=== PATIENT | female | born 1955 | race Caucasian/White ===

== ENCOUNTER 2022-07-05 06:24 | Observation (INO) ==
--- NOTE | 2022-06-07 09:13 | PAT Medication Instructions ---
Medication Instructions Date of Service June 07, 2022 Home Medications Catechola-Calm 1 tab PO QPM Qunol 1 tab PO QPM albuterol sulfate 90 mcg/actuation aerosol inhaler 1 inh inhalation QID PRN amlodipine 10 mg tablet 10 mg PO QAM calcium 500 mg tablet 500 mg PO QAM celecoxib 200 mg capsule 200 mg PO BID PRN cholecalciferol (vitamin D3) 10 mcg (400 unit) capsule (Vitamin D3) 10 mcg PO QAM famotidine 40 mg tablet 40 mg PO HS fexofenadine 60 mg tablet 60 mg PO BID PRN magnesium 200 mg tablet 200 mg PO QAM metoprolol tartrate 25 mg tablet 12.5 mg PO QPM montelukast 10 mg tablet 10 mg PO HS ASK your surgeon for instructions celecoxib 200 mg capsule 200 mg PO BID PRN STOP taking 2 weeks before surgery Catechola-Calm 1 tab PO QPM Qunol 1 tab PO QPM DO NOT take the morning of surgery calcium 500 mg tablet 500 mg PO QAM cholecalciferol (vitamin D3) 10 mcg (400 unit) capsule (Vitamin D3) 10 mcg PO QAM fexofenadine 60 mg tablet 60 mg PO BID PRN magnesium 200 mg tablet 200 mg PO QAM Take morning of surgery With a small sip of water, OTHERWISE NOTHING TO EAT OR DRINK AFTER MIDNIGHT: albuterol sulfate 90 mcg/actuation aerosol inhaler 1 inh inhalation QID PRN(use if needed; please bring with you to hospital day of surgery if possible) amlodipine 10 mg tablet 10 mg PO QAM Take evening before surgery albuterol sulfate 90 mcg/actuation aerosol inhaler 1 inh inhalation QID PRN(if needed) famotidine 40 mg tablet 40 mg PO HS fexofenadine 60 mg tablet 60 mg PO BID PRN(if needed) metoprolol tartrate 25 mg tablet 12.5 mg PO QPM montelukast 10 mg tablet 10 mg PO HS Other Notes If you have any questions please call us at [phone] or [phone] or [phone] or [phone]
--- NOTE | 2022-06-14 14:42 | Anesthesiology Consultation ---
Date of Service June 14, 2022 Assessment & Plan (1) Encounter for pre-operative examination: - COVID screening: Per assessment on 06/14: No known COVID-19 positive contacts or current COVID-19 related symptoms. Travel screen negative. At surgeon discretion if preop Covid testing being done. - Outpatient joint assessment: Pt currently scheduled for inpatient pathway. If surgeon requests review for outpatient joint pathway, patient is acceptable candidate for outpatient joint program from anesthesia standpoint pending surgeon's office assessment of pt motivation/strong home support/completion of same day joint program preop requirements. 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 Last office visit (05/09/22)- "Surgery for SGS was 05/12/17, 03/29/19, 08/23/19.. Breathing stable since last visit, approx ~5% worse SGS.. Min reflux laryngitis.. SGS size (~20-25%) - less red, min exudate; circumferential.. Pantoprazole.. Famotidine.. Hydrate/humidify.. Mucinex PRN.. Prednisone PRN dyspnea.. Treat allergies optimally.. For knee surgery - LMA or small tube (size 6-6.5) and careful placement.. If worsening dyspnea, can revisit MDL, balloon dilation" Chart Review Chart Review: Acceptable Risk for Surgery and Patient seen in Pre Admission Testing Teaching & Discussion Pre-Anesthesia Teaching/Discussion Notes: Instructed NPO after midnight before surgery,except medications with 15 cc of water. Medication instructions provided according to the PAT guidelines. History Surgery Operation Date: 07/05/22 12:10 Proposed Procedures p Right Total Knee Arthroplasty - Claudy Katz DO Height/Weight Height: 5 ft 2 in Weight: 91.6 kg Allergies Allergy/AdvReac Type Severity Reaction Status Date / Time No Known Allergies Allergy Verified 06/06/22 09:31 Medications Home Medications Medication Instructions Recorded Confirmed Last Taken Catechola-Calm 1 tab PO QPM 06/06/22 06/06/22 Unknown Qunol 1 tab PO QPM 06/06/22 06/06/22 Unknown albuterol sulfate 90 mcg/actuation 1 inh inhalation QID PRN Shortness 06/06/22 06/06/22 Unknown aerosol inhaler Of Breath Or Wheezing amlodipine 10 mg tablet 10 mg PO QAM 06/06/22 06/06/22 Unknown calcium 500 mg tablet 500 mg PO QAM 06/06/22 06/06/22 Unknown celecoxib 200 mg capsule 200 mg PO BID PRN Pain 06/06/22 06/06/22 Unknown cholecalciferol (vitamin D3) 10 10 mcg PO QAM 06/06/22 06/06/22 Unknown mcg (400 unit) capsule (Vitamin D3) famotidine 40 mg tablet 40 mg PO HS 06/06/22 06/06/22 Unknown fexofenadine 60 mg tablet 60 mg PO BID PRN Allergy Symptoms 06/06/22 06/06/22 Unknown magnesium 200 mg tablet 200 mg PO QAM 06/06/22 06/06/22 Unknown metoprolol tartrate 25 mg tablet 12.5 mg PO QPM 06/06/22 06/06/22 Unknown montelukast 10 mg tablet 10 mg PO HS 06/06/22 06/06/22 Unknown Past Medical History Medical History (Updated 06/14/22 @ 14:57 by Babs Jarvis) History of COVID-2019 Symptoms at time: SOB, Covid PNA (6 day hospitalization [facility]) > resolved Hyperlipidemia Hypertension Sarcoidosis Diagnosed 20 yrs ago Seasonal allergies 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 Solis Roth (ENT, [place] office) Exercise / Class Metabolic Activity II 4-5 Yardwork/Stairs/Walk up hill (one FS (no CP, no SOB)) Past Family History Family History Other No family history of adverse response to anesthesia Past Surgical History Surgical History History of bronchoscopy History of bunionectomy left History of lung biopsy 20 yrs ago Past Anesthesia History No Hx of Anesthesia Complications and No Family Hx of Anesthesia Complications History of PONV No Hx of PONV and No Hx of Motion Sickness Social History Smoking Status: Never smoker Do You Dip or Chew Tobacco: No Hx Alcohol Use: No Hx Substance Use: No substance use type: does not use Review of Systems Patient denies chest pain, shortness of breath, dyspnea on exertion, fever, chills, cough, wheezing, palpitations. Physical Exam Vital Signs VITALS BP 168/77 P 81 TEMP 98.4 SP02 96%RA RESP 16 PHYSICAL Full cervical extension range of motion. Full TMJ range of motion. TMD 3 finger breaths Mallampati Score 3 Dentition: intact Lungs: clear throughout to auscultation Cardiac: regular rate and rhythm, no murmurs noted Spine: normal Carotid arteries: negative bruit Extremities: no edema Lab Results Anesthesia Preop Results Results Anesthesia Widget: WBC 7.67 K/ul (4.8-10.8) 06/14/22 Hgb 14.4 g/dl (12.0-16.0) 06/14/22 Hct 43.3 % (34.1-44.9) 06/14/22 Plt 278 K/uL (130-400) 06/14/22 Na 140 mmol/L (136-145) 06/14/22 K 4.0 mmol/L (3.5-5.1) 06/14/22 Cl 102 mmol/L (98-107) 06/14/22 CO2 29 mmol/L (21-32) 06/14/22 BUN 17 mg/dl (6-23) 06/14/22 Creat 0.87 mg/dl (0.6-1.2) 06/14/22 Glucose Level 104 mg/dl (70-99(Fasting)) H 06/14/22 PT 10.2 Seconds (9.0-12.0) 06/14/22 PTT 29.9 Seconds (21.0-31.0) 06/14/22 INR 1.0 (0.9-1.1) 06/14/22 Blood Type O Positive 06/14/22 Antibody Screen NEGATIVE 06/14/22 Testing Electrocardiogram Date: 06/14/22 Findings: + NSR @ (76) Chest X-Ray Date: 06/14/22 Findings: + NAD COVID-19 Risk Screen Screening Information COVID-19 Screen Date: 06/14/22 Exposure 21 Days Family/Household +COVID Last 21 Days: No Exposure 10 Days Any COVID Exposure Last 10 Days: No Symptoms Last 10 Days Experienced COVID Sx Last 10 Days: No + COVID 0-90 Days COVID + in Last 0-90 Days: No
[~2022-07-05 06:24] MED LIST: ACETAMINOPHEN 500 MG TAB PO SCH; BUPIVACAINE 0.25% 30 ML VIAL ONE; BUPIVACAINE 0.5 % 5 MG/1 ML PF 10ML VIAL ONE; DEXAMETHASONE SOD INJ 4 MG/ML VIAL ONE; EPINEPHrine INJ 1 MG/ML AMP ONE; FAMOTIDINE 20 MG TAB PO SCH; GABAPENTIN 300 MG CAP PO SCH; LR 500ML BOLUS, THEN 15ML/HR IV SCH; LR 60ML/HR IV SCH; ORTHO JOINT MIX INFIL SCH; TRANEXAMIC ACID 1,000 MG **IV Intra-op IV SCH; TRANEXAMIC ACID 1,000 MG **IV Pre-op IV SCH; ceFAZolin 2000MG 2,000 MG/15 ML SYR IV SCH; dexAMETHasone 4 MG TAB PO SCH
--- NOTE | 2022-07-05 06:43 | History & Physical Bridge Note ---
Date of Service July 05, 2022 History & Physical Bridge Note I have examined the patient, reviewed the History & Physical and in the interval since the performance of the History & Physical I have noted the following changes of clinical significance: no changes noted
[2022-07-05] MEDS ORDERED: fentaNYL citrate 100 MCG/2 ML VIAL ONE (07:39)
[2022-07-05] MEDS ORDERED: LIDOCAINE 2% MPF LOCAL 5 ML VIAL INFIL ONE (07:39)
[2022-07-05] MEDS ORDERED: ONDANSETRON INJ 2 MG/ML 2 ML VIAL ONE (07:39)
[2022-07-05] MEDS ORDERED: MIDAZOLAM HCL 1 MG/ML 2ML VIAL ONE (07:39)
[2022-07-05] MEDS ORDERED: PROPOFOL IV EMULSION 10 MG/ML 20 ML VIAL IV ONE ×2 (07:39→09:58)
[2022-07-05] MEDS ORDERED: ORTHO JOINT ANESTHETIC ONE (08:35)
[2022-07-05] MEDS ORDERED: DEXAMETHASONE SOD INJ 4 MG/ML VIAL ONE (09:16)
--- NOTE | 2022-07-05 10:05 | Operative Report ---
PG Post Operative Report Pre & Post Diagnosis Operation Date: 07/05/22 08:50 Pre-Op Diagnosis: Right Knee Degenerative Joint Disease Post-Op Diagnosis: Right Knee Degenerative Joint Disease I identified the patient and participated in the time-out.: Yes Procedure Operation Date: 07/05/22 08:50 Actual Procedures p Right Total Knee Arthroplasty, Cemented(Right) - Claudy Katz DO Surgeon Claudy Katz DO Photoengraving Proofer Claudy Holman PA-C Estimated Blood Loss 20 Findings Consistent with Post-Op Diagnosis Specimens Right femoral and tibial bone Description of Procedure Implants used: I used a Hank Persona total knee arthroplasty system with a size 8 PS narrow femur, D tibia, 31 oval patella, and a size 12 CPS polyethylene bearing. All components were cemented in place with Biomet cement. Nelly arrived [facility] for the above procedure. She was seen in the preoperative holding area and the operative extremity was identified and signed. She was given a preoperative antibiotic, TXA, a spinal anesthetic and an adductor nerve block. She was taken back to the operating room and laid on the table in supine position. She was given basic sedation. The operative knee was then prepped and draped in sterile fashion. A timeout was done, and the patient and the operative extremity was properly identified. A midline incision was made directly over the patella. Dissection was taken down to the extensor mechanism. A subvastus arthrotomy was used. The medial retinaculum was released and the fat pad was mostly excised. The knee was flexed and the ACL, PCL, and meniscus were removed. A drill was sent down the center of the femoral canal followed by an intramedullary brissa. Off that brissa a distal femoral cutting block was placed. 9 mm was resected off the distal femur at 5 of valgus. A posterior referencing AP sizing guide was then placed on the distal femur. The femur measured to be a size 8. 2 drill holes were placed in 3 of external rotation. A 4-in-1 cutting block was then impacted into place. Anterior, posterior, and chamfer cuts were then made. The proximal tibia was then exposed. An external tibial alignment guide was placed. A tibial cut guide was then anchored in place and the proximal tibia was then resected. The posterior aspect of the knee was then opened up and any additional meniscus fragments and osteophytes were removed. The tibia measured to be a size D. The tibial plate was then placed in the appropriate rotation and the tibia was drilled and punched. Trial components were then placed. I used a size 12 CPS polyethylene insert. The knee was brought through a full range of motion and felt to be stable. The peg holes for the femoral component were then drilled. The patella was then everted and 9 mm was resected off the posterior aspect of the patella. The patella measured to be a size 31 oval. 3 peg holes were then drilled. A trial patella was placed. The knee was once again brought through a full range of motion and felt to be stable. Trial components were then removed. The surrounding soft tissues were injected with 100 cc of an orthopedic pain control cocktail. All components were then cemented into place with Biomet cement. The final polyethylene insert was then snapped into place. Once cement was dry the tourniquet was deflated. Hemostasis was obtained. A dilute betadyne lavage was then done for 3 minutes. The joint was then irrigated with normal saline solution. The subvastus arthrotomy was then closed with #1 Vicryl suture. The skin was closed with 2-0 Vicryl, 3-0V lock suture, and belkis. A soft compressive dressing was placed. She was then transferred to a hospital bed and taken to the postanesthesia care unit in stable condition. She tolerated the procedure well. Claudy Holman PA-C, was present for the entire procedure. He was critical for patient positioning, prepping, draping, retraction exposure, wound closure and application of sterile dressing. I attest to the content of the Intraoperative Record and any orders documented therein. Any exceptions are noted below.
[2022-07-05] MEDS ORDERED: ONDANSETRON INJ 2 MG/ML 2 ML VIAL IV PRN ×2 (10:46→12:03)
[2022-07-05] MEDS ORDERED: ATROPINE SULFATE 0.1 MG/ML 10ML SYR IV PRN (10:46)
[2022-07-05] MEDS ORDERED: PROMETHAZINE HCL 6.25 MG in SODIUM CHLORIDE 0.9% 50 ML IV PRN (10:46)
[2022-07-05] MEDS ORDERED: fentaNYL citrate 100 MCG/2 ML VIAL IV PRN (10:46)
[2022-07-05] MEDS ORDERED: ePHEDrine sulfate 50 MG/ML AMP IV PRN (10:46)
--- NOTE | 2022-07-05 11:04 | XRay Report ---
XR knee RT 1 or 2V routine CLINICAL HISTORY: Postoperative evaluation. COMPARISON: Knee radiographs September 15, 2021. FINDINGS: Alignment of the total right knee arthroplasty is anatomic. There is no periprosthetic fra cture. No unexpected radiopaque foreign bodies are present. There are skin belkis. IMPRESSION: Expected findings following total right knee arthroplasty. ACT 112: Negative or not required by law. Electronically signed by: Bruce Wilder M.D. 07/05/2022 11:03 AM
[2022-07-05] MEDS ORDERED: bisacodyL 10 MG SUPP PR PRN (12:03)
[2022-07-05] MEDS ORDERED: ALBUTEROL HFA 8 GM INHALER INH PRN (12:03)
[2022-07-05] MEDS ORDERED: METOCLOPRAMIDE HCL INJ 5 MG/ML 2 ML VIAL IV PRN (12:03)
[2022-07-05] MEDS ORDERED: HYDROmorphone INJ 0.5 MG/0.5 ML SYR IV PRN (12:03)
[2022-07-05] MEDS ORDERED: NALOXONE HCL 0.4 MG/1 ML VIAL/CARP IV PRN (12:03)
[2022-07-05] MEDS ORDERED: oxyCODONE HCL IR 5 MG TAB (IMMEDIATE RELEASE) PO PRN (12:03)
[2022-07-05] MEDS ORDERED: FEXOFENADINE 60 MG TAB PO PRN (12:03)
[2022-07-05] MEDS ORDERED: MAGNESIUM HYDROXIDE SUSP 30 ML UDC PO PRN (12:03)
[2022-07-05] MEDS: SODIUM CHLORIDE 0.9% 1000ML 1,000 ML IV SCH ×2 (12:40→22:36)
[2022-07-05] MEDS: KETOROLAC 30 MG/ML VIAL IV SCH ×2 (14:52→21:22)
--- NOTE | 2022-07-05 16:03 | Anesthesiology Progress Note ---
Date of Service July 05, 2022 Anesthesia Post Procedure Vital Signs Vital Signs: Temp Pulse Pulse Resp BP Pulse Ox O2 Del Method 07/05/22 14:33 36.5 C 75 16 126/73 95 Nasal Cannula 07/05/22 13:35 36.5 C 79 16 122/69 95 Nasal Cannula 07/05/22 12:35 36.5 C 102 H 16 143/80 H 93 Nasal Cannula 07/05/22 12:00 75 12 134/64 96 Nasal Cannula 07/05/22 11:45 73 12 132/65 94 Nasal Cannula 07/05/22 11:30 68 12 128/70 95 Nasal Cannula 07/05/22 11:15 69 17 127/72 93 Nasal Cannula 07/05/22 11:05 36.1 C L 70 12 136/67 95 Nasal Cannula 07/05/22 10:55 76 15 130/70 93 Oxymask 07/05/22 10:45 74 13 136/69 93 Oxymask 07/05/22 10:35 77 18 127/65 95 Oxymask 07/05/22 10:27 36.2 C L 79 16 118/62 95 Oxymask 07/05/22 06:46 36.5 C 95 H 20 184/96 H 97 Room Air O2 Flow Rate 07/05/22 14:33 2 07/05/22 13:35 2 07/05/22 12:35 2 07/05/22 12:00 3 07/05/22 11:45 3 07/05/22 11:30 3 07/05/22 11:15 3 07/05/22 11:05 3 07/05/22 10:55 4 07/05/22 10:45 6 07/05/22 10:35 8 07/05/22 10:27 10 07/05/22 06:46 Pain Intensity Right Knee: Pain Intensity: 3 Transfer of Care Handoff Completed per policy Notes Mental Status: alert / awake / arousable Patient Amnestic to Procedure: Yes Nausea / Vomiting: adequately controlled Pain: adequately controlled Airway Patency, RR, SpO2: stable & adequate BP & HR: stable & adequate Hydration State: stable & adequate Neuraxial Anesthesia: was administered and sensory block is resolving Anesthetic Complications: no major complications apparent and Pt Satisfied with anesthetic care
[2022-07-05] MEDS: ceFAZolin 2000MG 2,000 MG/15 ML SYR IV SCH (16:39)
[2022-07-05] MEDS ORDERED: SENNA 8.6 MG TAB PO SCH (21:00)
[2022-07-05] MEDS ORDERED: METOPROLOL TARTRATE 25 MG TAB PO SCH (21:00)
[2022-07-05] MEDS ORDERED: MONTELUKAST SODIUM 10 MG TABLET PO SCH (21:00)
[2022-07-05] MEDS ORDERED: FAMOTIDINE 40 MG TABLET PO SCH (21:00)
[2022-07-05] MEDS: ASPIRIN 81 MG ECTAB PO SCH (21:37)
[2022-07-05] MEDS: DOCUSATE SODIUM 100 MG CAP PO SCH (21:38)
[2022-07-05] MEDS: ACETAMINOPHEN 500 MG TAB PO SCH (21:40)
[2022-07-06] MEDS: ceFAZolin 2000MG 2,000 MG/15 ML SYR IV SCH (00:36)
[2022-07-06] MEDS: KETOROLAC 30 MG/ML VIAL IV SCH ×2 (02:31→07:34)
[2022-07-06] MEDS: ACETAMINOPHEN 500 MG TAB PO SCH (06:28)
--- NOTE | 2022-07-06 06:54 | Orthopedic Progress Note ---
Date of Service July 06, 2022 Assessment & Plan (1) Status post right knee replacement: Overall she is doing very well. She is not having much pain in the right knee. She will be seen by physical therapy today for ambulation and range of motion exercises. She is on aspirin for DVT prophylaxis. She can be discharged home later today. She will follow-up with orthopedics in 2 weeks. Irene Villegas was seen and examined at bedside this morning. Overall she is doing very well. She is not any much pain in the right knee. She has been up and ambulating to the bathroom. She has no complaints.. Review of Systems All systems reviewed & are unremarkable except as noted in HPI & below. Physical Exam On physical examination of the right knee, the dressing is clean and dry. Her leg is out in full extension. She has active dorsiflexion plantarflexion of her right ankle.. Results & Data Results & Data Laboratory Results . Diagnostic Findings Postoperative x-rays of the right knee show the prosthesis to be in anatomic alignment without any evidence of fracture, desiccation, or loosening. PG Care Time/CCT Total # of Minutes Spent Total Time Spent with Patient: Total time spent is greater than 50% in coordination of care (as documented) at patient's floor/unit and/or counseling patient: Coding Level of Care Code 72048 Post Operative Follow-Up Diagnoses Status post right knee replacement Z96.651
--- NOTE | 2022-07-06 06:55 | Discharge Summary ---
Date of Service July 06, 2022 Principal Diagnosis Same as "Discharge Diagnosis" noted below under Discharge Instructions. Discharge Exam On physical examination of the right knee, the dressing is clean and dry. Her leg is out in full extension. She has active dorsiflexion plantarflexion of her right ankle.. Discharge Data Procedures Performed Operation Date: 07/05/22 08:50 Actual Procedures p Right Total Knee Arthroplasty, Cemented(Right) - Claudy Katz DO Ordered Studies 07/05/22 05:00 US - OR guided needle placemen Routine Hospital Course (1) Status post right knee replacement: On July 05, 2022 Diane arrived at [facility] and underwent a right knee replacement without complication. She had a spinal anesthetic. Postoperatively she was started on aspirin for DVT prophylaxis and transferred to the general orthopedic floors. Her hospital course was uneventful. On postop day #1, her vital signs were stable and her pain was well controlled. She was able to participate well with physical therapy doing ambulation and range of motion exercises. She was then discharged home. She will follow-up with orthopedics in 2 weeks. PG Care Time/CCT Total # of Minutes Spent Total Time Spent with Patient: Total time spent is greater than 50% in coordination of care (as documented) at patient's floor/unit and/or counseling patient: Discharge Plan Discharge Items Patient Disposition: Home - Home Health Services Reason For Visit: Right Knee Degenerative Joint Disease Discharge Diagnosis: Right knee replacement Activity: Per Instructions section Non-emergency contact: Surgeon Call non-emergency contact if: your wound has increased redness and your wound has increased drainage Follow-up/Referrals: PCP,NO [Primary Care Provider] - Diet: Regular Addtl Attending Provider Instructions: Activity and Therapy Recommendations: * If you are using [facility] then therapy will be provided at your home until they feel you have accomplished all of your goals. * If you are using [facility] then Physical Therapy will be provided until they feel you are ready to start Outpatient Physical Therapy. * If you are not using home therapy then Outpatient Physical Therapy should start about 3-5 days from your day of surgery. Therapy will last about 6-10 weeks * It is important not to put a pillow under your knee when you are relaxing or sleeping. It is just as important to make sure you are getting your knee perfectly straight as it is to regain your knee bend. * You were shown a series of exercises in the hospital. Do these exercises three times each day including the exercises you were shown in physical therapy. * Get up and walk several times each day. For the first four weeks, try not to stand or walk for more than one hour at a time. If you do stand or walk for more than one hour, you will not hurt anything, but your leg will likely swell. * As you feel comfortable, you may change from the walker or crutches to a cane and then to independent walking. Medications: * Narcotic You will likely be sent home from the hospital with a prescription for the narcotic pain medication that worked best throughout your stay. * Aspirin Most patients will be required to take Aspirin 81mg twice a day for 6 weeks after surgery. This is obtained [id number] and a prescription is not necessary. * Other medications may be prescribed for specific circumstances. If you have any questions, please call the office at . * Resume previous home medications unless otherwise instructed TEDs/Elastic Stockings: The white elastic stockings help limit swelling and prevent blood clots from forming in your legs.~ The more you wear them, the more they work. Wear them for six weeks. Dressing Care: The dressing can be changed after physical therapy on postop day #1. Daily dry dressing changes for a few days, especially if the incision is still draining some. If the incision is not draining then you may leave the belkis open to air. If there is a little bit of drainage or if the belkis are getting stuck on your clothing then cover the incision with a dry dressing. The belkis will be removed at your 2 week follow-up appointment. Showering: You may shower 5 days from the day of surgery as long as the incision is no longer draining. You may shower with the belkis exposed. Let soapy water run over the belkis and pat them dry. Do not scrub or soak the incision. Things To Watch For: * Drainage from the incision site that occurs more than one week after your surgery. * Increased redness at the incision site. * Fever above 102 degrees Fahrenheit. * Unusual chest pain or shortness of breath. * Call [facility] at with any of the above problems Follow-Up Visit: Follow-up with Dr. Katz's PA (Claudy Holman) 2-3 weeks after your day of surgery. He will remove your belkis and answer any questions. If you have any additional questions or concerns, Dr Katz is usually in the office at the same time and will be available An appointment was probably scheduled when you signed-up for surgery in the office. If you have any questions call Office Instructions: More detailed instructions as well as Frequently Asked Questions were provided in a folder by our office when you signed-up for surgery. Please review these instructions when you get home. If you have any further questions or concerns, please feel free to call the off ice at [phone] Pending Studies at Discharge: No Stand-Alone Forms: My [facility] Medications and DC Order Prescriptions: New oxycodone-acetaminophen 5-325 mg tablet 1 tab PO Q6H PRN (Reason: pain) Qty: 30 0RF aspirin 81 mg Tablet,Delayed Release (Dr/Ec) 81 mg PO BID 42 Days Qty: 84 0RF Continued celecoxib 200 mg Capsule 200 mg PO BID PRN (Reason: Pain) famotidine 40 mg Tablet 40 mg PO HS calcium 500 mg Tablet 500 mg PO QAM amlodipine 10 mg Tablet 10 mg PO QAM montelukast 10 mg Tablet 10 mg PO HS magnesium 200 mg Tablet 200 mg PO QAM cholecalciferol (vitamin D3) [Vitamin D3] 10 mcg (400 unit) Capsule 10 mcg PO QAM metoprolol tartrate 25 mg Tablet 12.5 mg PO QPM Catechola-Calm 1 tab PO QPM fexofenadine [Marylou] 60 mg Tablet 60 mg PO BID PRN (Reason: Allergy Symptoms) albuterol sulfate 90 mcg/actuation Hfa Aerosol Inhaler 1 inh INHALATION QID PRN (Reason: Shortness Of Breath Or Wheezing) Qunol 1 tab PO QPM Discharge Orders: Discharge Order (Routine); Ordered 07/06/22 Ordered By: Claudy Katz Admission Data Admit Date/Time: 07/05/22 10:27 Attending Provider: Claudy Katz Admit Provider: Claudy Katz Primary Care Provider: [id number]
[2022-07-06] MEDS: DOCUSATE SODIUM 100 MG CAP PO SCH (07:34)
[2022-07-06] MEDS: ASPIRIN 81 MG ECTAB PO SCH (07:34)
[2022-07-06] MEDS ORDERED: dexAMETHasone 4 MG TAB PO SCH (08:00)
[2022-07-06] MEDS ORDERED: MAGNESIUM OXIDE 400 MG TAB PO SCH (09:00)
[2022-07-06] MEDS ORDERED: amLODIPine BESYLATE 5 MG TAB PO SCH (09:00)
[2022-07-06] MEDS ORDERED: MULTIVITAMIN TAB PO SCH (09:00)
== END 2022-07-06 12:25 | disposition home health service (06) ==
LOC: PACUINP 06:24 → ASU 06:24 → 3W 12:51

== ENCOUNTER 2023-03-17 06:39 | Observation (INO) ==
--- NOTE | 2023-02-08 10:00 | PAT Medication Instructions ---
Medication Instructions Date of Service February 08, 2023 Home Medications Medication Instructions Recorded celecoxib 200 mg capsule 200 mg PO BID PRN Pain #60 caps 07/06/22 amoxicillin 500 mg tablet 2,000 mg PO ONCE #4 tabs 02/03/23 amoxicillin 500 mg tablet 2,000 mg PO ONCE #4 tabs 02/03/23 Catechola-Calm 1 tab PO QPM Qunol 1 tab PO QPM albuterol sulfate 90 mcg/actuation aerosol inhaler 1 inh inhalation QID PRN Shor tness Of Breath Or Wheezing amlodipine 10 mg tablet 10 mg PO QAM calcium 500 mg tablet 500 mg PO QAM cholecalciferol (vitamin D3) 10 mcg (400 unit) capsule (Vitamin D3) 10 mcg PO QAM famotidine 40 mg tablet 40 mg PO HS fexofenadine 60 mg tablet 60 mg PO BID PRN Allergy Symptoms magnesium 200 mg tablet 200 mg PO QAM metoprolol tartrate 25 mg tablet 12.5 mg PO QPM montelukast 10 mg tablet 10 mg PO HS celecoxib 200 mg capsule 200 mg PO BID PRN Pain amoxicillin 500 mg tablet 2,000 mg PO ONCE amoxicillin 500 mg tablet 2,000 mg PO ONCE glucosamine-chondroitin 250 mg-200 mg tablet (Osteo Bi-Flex) 1 tab PO QAM Continue as directed amoxicillin 500 mg tablet 2,000 mg PO ONCE (if needed) ASK your surgeon for instructions celecoxib 200 mg capsule 200 mg PO BID PRN Pain STOP taking 2 weeks before surgery Catechola-Calm 1 tab PO QPM Qunol 1 tab PO QPM glucosamine-chondroitin 250 mg-200 mg tablet (Osteo Bi-Flex) 1 tab PO QAM DO NOT take the morning of surgery calcium 500 mg tablet 500 mg PO QAM cholecalciferol (vitamin D3) 10 mcg (400 unit) capsule (Vitamin D3) 10 mcg PO QAM fexofenadine 60 mg tablet 60 mg PO BID PRN Allergy Symptoms magnesium 200 mg tablet 200 mg PO QAM Take morning of surgery With a small sip of water, OTHERWISE NOTHING TO EAT OR DRINK AFTER MIDNIGHT: albuterol sulfate 90 mcg/actuation aerosol inhaler 1 inh inhalation QID PRN Shortness Of Breath Or Wheezing (use if needed; please bring with you to hospital day of surgery if possible) amlodipine 10 mg tablet 10 mg PO QAM Take evening before surgery albuterol sulfate 90 mcg/actuation aerosol inhaler 1 inh inhalation QID PRN Shortness Of Breath Or Wheezing (if needed) famotidine 40 mg tablet 40 mg PO HS fexofenadine 60 mg tablet 60 mg PO BID PRN Allergy Symptoms (if needed) metoprolol tartrate 25 mg tablet 12.5 mg PO QPM montelukast 10 mg tablet 10 mg PO HS Other Notes If you have any questions please call us at [phone] or [phone] or [phone] or [phone]
--- NOTE | 2023-02-14 11:52 | Anesthesiology Consultation ---
Date of Service February 14, 2023 Assessment & Plan (1) Encounter for pre-operative examination: - COVID screening: Per assessment on 02/14: No known COVID-19 positive contacts or current COVID-19 related symptoms. Travel screen negative. At surgeon discretion if preop Covid testing being done. - Outpatient joint assessment: Pt currently scheduled for inpatient pathway. If surgeon requests review for outpatient joint pathway, patient is an acceptable candidate for outpatient joint program from anesthesia standpoint. 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 Patient scheduled to see ENT prior to surgery- Awaiting office visit note (Dr. Solis Roth/[place] office, appt 03/06). Chart Review Chart Review: Patient seen in Pre Admission Testing Teaching & Discussion Pre-Anesthesia Teaching/Discussion Notes: Instructed NPO after midnight before surgery,except medications with 15 cc of water. Medication instructions pro vided according to the PAT guidelines. History Surgery Operation Date: 03/17/23 13:10 Proposed Procedures p Left Total Knee Arthroplasty - Claudy Katz, Height/Weight Height: 5 ft 2 in Weight: 89.4 kg Allergies Allergy/AdvReac Type Severity Reaction Status Date / Time No Known Allergies Allergy Verified 02/07/23 14:42 Medications Home Medications Medication Instructions Recorded Confirmed Last Taken Catechola-Calm 1 tab PO QPM 06/06/22 02/07/23 06/21/22 Qunol 1 tab PO QPM 06/06/22 02/07/23 06/21/22 albuterol sulfate 90 mcg/actuation 1 inh inhalation QID PRN Shortness 06/06/22 02/07/23 Unknown aerosol inhaler Of Breath Or Wheezing amlodipine 10 mg tablet 10 mg PO QAM 06/06/22 02/07/23 07/05/22 04:45 calcium 500 mg tablet 500 mg PO QAM 06/06/22 02/07/23 06/21/22 cholecalciferol (vitamin D3) 10 10 mcg PO QAM 06/06/22 02/07/23 06/21/22 mcg (400 unit) capsule (Vitamin D3) famotidine 40 mg tablet 40 mg PO HS 09/02/07/23 07/04/22 21:00 fexofenadine 60 mg tablet 60 mg PO BID PRN Allergy Symptoms 06/06/22 02/07/23 Unknown magnesium 200 mg tablet 200 mg PO QAM 06/06/22 02/07/23 06/21/22 metoprolol tartrate 25 mg tablet 12.5 mg PO QPM 06/06/22 02/07/23 07/04/22 21:00 montelukast 10 mg tablet 10 mg PO HS 06/06/22 02/07/23 07/04/22 21:00 celecoxib 200 mg capsule 200 mg PO BID PRN Pain #60 caps 07/06/22 02/07/23 Unknown amoxicillin 500 mg tablet 2,000 mg PO ONCE #4 tabs 02/03/23 02/07/23 Unknown amoxicillin 500 mg tablet 2,000 mg PO ONCE #4 tabs 02/03/23 02/07/23 Unknown glucosamine-chondroitin 250 mg-200 1 tab PO QAM 02/07/23 02/07/23 Unknown mg tablet (Osteo Bi-Flex) Past Medical History Medical History History of COVID-19 2020- Covid PNA (6 day hospitalization [facility]) > resolved Hyperlipidemia Hypertension Osteoarthritis Sarcoidosis Diagnosed 20 years ago Seasonal allergies 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 Solis Roth/[place] office) Exercise / Class Metabolic Activity II 4-5 Yardwork/Stairs/Walk up hill Past Family History Family History Other No family history of adverse response to anesthesia Past Surgical History Surgical History History of bronchoscopy History of bunionectomy left History of lung biopsy 20 years ago History of right knee joint replacement Right TKA (07/05/22): SAB at L3/4 (x1 attempt) + PNB at [facility] Social History Smoking Status: Never smoker Do You Dip or Chew Tobacco: No Hx Alcohol Use: No Hx Substance Use: No substance use type: does not use Review of Systems Patient denies chest pain, shortness of breath, dyspnea on exertion, fever, chills, cough, wheezing, palpitations. Physical Exam Vital Signs VITALS BP 149/83 P 72 TEMP 97.9 SP02 96%RA RESP 16 PHYSICAL Mildly decreased cervical extension range of motion. Full TMJ range of motion. TMD 3 finger breaths Mallampati Score 2 Dentition: intact Lungs: clear throughout to auscultation Cardiac: regular rate and rhythm, no murmurs noted Spine: normal Carotid arteries: negative bruit Extremities: non-pitting LE edema Lab Results Anesthesia Preop Results Results Anesthesia Widget: WBC 6.53 K/ul (4.8-10.8) 02/14/23 Hgb 13.7 g/dl (12.0-16.0) 02/14/23 Hct 41.1 % (37.0-47.0) 02/14/23 Plt 282 K/uL (130-400) 02/14/23 PT 10.4 Seconds (9.0-12.0) 02/14/23 PTT 30.6 Seconds (21.0-31.0) 02/14/23 INR 0.9 (0.9-1.1) 02/14/23 Blood Type O Positive 02/14/23 Antibody Screen NEGATIVE 02/14/23 Testing Laboratory Results 01/30/23 SODIUM 139 POTASSIUM 4.5 CHLORIDE 100 CO2 28 BUN 20 CREATININE 0.7 GLUCOSE 107 Electrocardiogram Date: 06/14/22 Findings: + NSR @ (76) Chest X-Ray Date: 06/14/22 Findings: + NAD COVID-19 Risk Screen Screening Information COVID-19 Screen Date: 02/14/23 Exposure 21 Days Family/Household +COVID Last 21 Days: No Exposure 10 Days Any COVID Exposure Last 10 Days: No Symptoms Last 10 Days Experienced COVID Sx Last 10 Days: No + COVID 0-90 Days COVID + in Last 0-90 Days: No
--- NOTE | 2023-03-16 12:08 | History & Physical Report ---
Date of Service March 16, 2023 Assessment & Plan (1) Osteoarthritis of left knee: We will proceed with a left total knee arthroplasty. Postoperatively she will be started on aspirin for DVT prophylaxis and kept overnight in the hospital for postop medical management. She plans to use energy physical therapy the following day. History of Present Illness Chief Complaint: Osteoarthritis of the left knee. Primary Care Provider: Maricarmen Peter MD Nelly is a pleasant 68-year-old female who has been doing with chronic increasing left knee pain. X-rays and clinical examination been diagnostic for advanced osteoarthritis of the left knee. After failed conservative treatment, she has elected proceed with a left total knee arthroplasty. I did do a right knee replacement on her in June 2022 when she is done well with that.. Allergies Allergy/AdvReac Type Severity Reaction Status Date / Time No Known Allergies Allergy Verified 02/07/23 14:42 Home Medications Medication Instructions Recorded Confirmed Type Catechola-Calm 1 tab PO QPM 06/06/22 02/07/23 History Qunol 1 tab PO QPM 06/06/22 02/07/23 History albuterol sulfate 90 mcg/actuation 1 inh inhalation QID PRN Shortness 06/06/22 02/07/23 History aerosol inhaler Of Breath Or Wheezing amlodipine 10 mg tablet 10 mg PO QAM 06/06/22 02/07/23 History calcium 500 mg tablet 500 mg PO QAM 06/06/22 02/07/23 History cholecalciferol (vitamin D3) 10 10 mcg PO QAM 06/06/22 02/07/23 History mcg (400 unit) capsule (Vitamin D3) famotidine 40 mg tablet 40 mg PO HS 06/06/22 02/07/23 History fexofenadine 60 mg tablet 60 mg PO BID PRN Allergy Symptoms 06/06/22 02/07/23 History magnesium 200 mg tablet 200 mg PO QAM 06/06/22 02/07/23 History metoprolol tartrate 25 mg tablet 12.5 mg PO QPM 06/06/22 02/07/23 History montelukast 10 mg tablet 10 mg PO HS 06/06/22 02/07/23 History celecoxib 200 mg capsule 200 mg PO BID PRN Pain #60 caps 07/06/22 02/07/23 Rx amoxicillin 500 mg tablet 2,000 mg PO ONCE #4 tabs 02/03/23 02/07/23 Rx amoxicillin 500 mg tablet 2,000 mg PO ONCE #4 tabs 02/03/23 02/07/23 Rx glucosamine-chondroitin 250 mg-200 1 tab PO QAM 02/07/23 02/07/23 History mg tablet (Osteo Bi-Flex) Past Med/Surg History Medical History History of COVID-19 2020- Covid PNA (6 day hospitalization [facility]) > resolved Hyperlipidemia Hypertension Osteoarthritis Sarcoidosis Diagnosed 20 years ago Seasonal allergies 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 Solis Roth/[place] office) Surgical History History of bronchoscopy History of bunionectomy left History of lung biopsy 20 years ago History of right knee joint replacement Right TKA (07/05/22): SAB at L3/4 (x1 attempt) + PNB at [facility] Family History Other No family history of adverse response to anesthesia Social History Smoking Status: Never smoker Second Hand Exposure: No; Do You Dip or Chew Tobacco: No; Hx Alcohol Use: No Hx Substance Use: No Preferred Language: Yoruba Communication Ability: Effective Feeder Catcher Tobacco Required: No Beliefs That Will Affect Care: None marital status: Current Living Situation: Spouse How many Children do You have: 1 Feels Safe at Home: Yes Safety Concerns: Feels Safe At This Time Assistive Devices: None Review of Systems All systems reviewed & are unremarkable except as noted in HPI & below. Physical Exam On physical examination of left knee, she has a slight varus deformity. She is good motion of 0 to 120 degrees. No instability. Pain of the distal medial femoral condyle and over the medial joint line.. Constitutional WD/WN, vitals as above Eyes PERRL, conjunctivae normal, anicteric sclerae ENMT external ear and nose normal, oropharynx normal Neck trachea midline, no thyromegaly Respiratory normal respiratory effort, lungs clear to auscultation Cardiovascular RRR, no murmur, no edema Gastrointestinal (Abdomen) normal bowel sounds, soft, nontender, no hepatosplenomegaly Skin no rashes, warm and dry Psychiatric A+Ox3, euthymic affect Results & Data Results & Data Laboratory Results . Diagnostic Findings X-rays of the left knee show advanced osteoarthritis with joint space narrowing, osteophyte formation, and [id number] articulation. PG Care Time/CCT Total # of Minutes Spent Total Time Spent with Patient: Total time spent is greater than 50% in coordination of care (as documented) at patient's floor/unit and/or counseling patient: Coding Level of Care Code None Diagnoses Osteoarthritis of left knee M17.12
[~2023-03-17 06:39] MED LIST changes: -BUPIVACAINE 0.25% 30 ML VIAL ONE; -DEXAMETHASONE SOD INJ 4 MG/ML VIAL ONE; -EPINEPHrine INJ 1 MG/ML AMP ONE; +ROPIVACAINE 0.5% 5 MG/ML 30 ML VIAL ONE
[2023-03-17] MEDS ORDERED: PROPOFOL IV EMULSION 10 MG/ML 20 ML VIAL IV ONE ×2 (07:09→09:34)
[2023-03-17] MEDS ORDERED: fentaNYL citrate PF 100 MCG/2 ML VIAL ONE (07:09)
[2023-03-17] MEDS ORDERED: LIDOCAINE 2% 2 ML VIAL/AMP(20MG/ML) INFIL ONE (07:09)
[2023-03-17] MEDS ORDERED: ONDANSETRON INJ 2 MG/ML 2 ML VIAL ONE ×2 (07:09→08:50)
[2023-03-17] MEDS ORDERED: MIDAZOLAM HCL 1 MG/ML 2ML VIAL ONE (07:09)
[2023-03-17] MEDS ORDERED: DEXAMETHASONE SOD INJ 4 MG/ML VIAL ONE (07:09)
--- NOTE | 2023-03-17 07:53 | History & Physical Bridge Note ---
Date of Service March 17, 2023 History & Physical Bridge Note I have examined the patient, reviewed the History & Physical and in the interval since the performance of the History & Physical I have noted the following changes of clinical significance: no changes noted
[2023-03-17] MEDS ORDERED: ORTHO JOINT ANESTHETIC ONE (07:57)
--- NOTE | 2023-03-17 09:23 | Operative Report ---
PG Post Operative Report Pre & Post Diagnosis Operation Date: 03/17/23 08:10 Pre-Op Diagnosis: Left Knee Degenerative Joint Disease Post-Op Diagnosis: Left Knee Degenerative Joint Disease I identified the patient and participated in the time-out.: Yes Procedure Operation Date: 03/17/23 08:10 Actual Procedures p Left Total Knee Arthroplasty(Left) - Claudy Katz DO Surgeon Claudy Katz DO Patient Service Rep Claudy Holman. See Estimated Blood Loss 30 Findings Consistent with Post-Op Diagnosis Specimens Left femoral and tibial bone Description of Procedure Implants used: I used a Hank Persona total knee arthroplasty system with a size 9 narrow PS femur, D tibia, 31 oval patella, and a size 10 CPS polyethylene bearing. All components were cemented in place with Biomet cement. Nelly arrived [facility] for the above procedure. She was seen in the preoperative holding area and the operative extremity was identified and signed. She was given a preoperative antibiotic, TXA, a spinal anesthetic and an adductor nerve block. She was taken back to the operating room and laid on the table in supine position. She was given basic sedation. The operative knee was then prepped and draped in sterile fashion. A timeout was done, and the patient and the operative extremity was properly identified. A midline incision was made directly over the patella. Dissection was taken down to the extensor mechanism. A midvastus arthrotomy was used. The medial retinaculum was released and the fat pad was mostly excised. The knee was flexed and the ACL, PCL, and meniscus were removed. A drill was sent down the center of the femoral canal followed by an intramedullary brissa. Off that brissa a distal femoral cutting block was placed. 9 mm was resected off the distal femur at 5 of valgus. A posterior referencing AP sizing guide was then placed on the distal femur. The femur measured to be a size 9. 2 drill holes were placed in 3 of external rotation. A 4-in-1 cutting block was then impacted into place. Anterior, posterior, and chamfer cuts were then made. The proximal tibia was then exposed. An external tibial alignment guide was placed. A tibial cut guide was then anchored in place and the proximal tibia was then resected. The posterior aspect of the knee was then opened up and any additional meniscus fragments and osteophytes were removed. The tibia measured to be a size D. The tibial plate was then placed in the appropriate rotation and the tibia was drilled and punched. Trial components were then placed. I used a size 10 CPS polyethylene insert. The knee was brought through a full range of motion and felt to be stable. The peg holes for the femoral component were then drilled. The patella was then everted and 9 mm was resected off the posterior aspect of the patella. The patella measured to be a size 31 oval. 3 peg holes were then drilled. A trial patella was placed. The knee was once again brought through a full range of motion and felt to be stable. Trial components were then removed. The surrounding soft tissues were injected with 100 cc of an orthopedic pain control cocktail. All components were then cemented into place with Biomet cement. The final polyethylene insert was then snapped into place. Once cement was dry the tourniquet was deflated. Hemostasis was obtained. A dilute betadyne lavage was then done for 3 minutes. The joint was then irrigated with normal saline solution. The midvastus arthrotomy was then closed with #1 Vicryl suture. The skin was closed with 2-0 Vicryl, 3-0V lock suture, and belkis. A soft compressive dressing was placed. She was then transferred to a hospital bed and taken to the postanesthesia care unit in stable condition. She tolerated the procedure well. Claudy Holman PA-C, was present for the entire procedure. He was critical for patient positioning, prepping, draping, retraction exposure, wound closure and application of sterile dressing. I attest to the content of the Intraoperative Record and any orders documented therein. Any exceptions are noted below.
--- NOTE | 2023-03-17 10:11 | Anesthesiology Progress Note ---
Date of Service March 17, 2023 Anesthesia Post Procedure Vital Signs Vital Signs: Temp Pulse Pulse Resp BP Pulse Ox O2 Del Method 03/17/23 09:55 62 12 103/56 L 96 Nasal Cannula 03/17/23 10:05 36.4 C L 60 19 115/59 L 94 Room Air 03/17/23 09:47 36.3 C L 60 14 98/53 L 97 Nasal Cannula 03/17/23 07:12 Room Air 03/17/23 06:58 36.8 C 93 H 20 167/88 H 94 Room Air O2 Flow Rate 03/17/23 09:55 3 03/17/23 10:05 03/17/23 09:47 3 03/17/23 07:12 03/17/23 06:58 Transfer of Care Handoff Completed per policy Notes Mental Status: alert / awake / arousable and participated in evaluation Nausea / Vomiting: adequately controlled Pain: adequately controlled Airway Patency, RR, SpO2: stable & adequate BP & HR: stable & adequate Hydration State: stable & adequate Neuraxial Anesthesia: was administered and sensory block is resolving Anesthetic Complications: no major complications apparent and Pt Satisfied with anesthetic care
[2023-03-17] MEDS ORDERED: MAGNESIUM HYDROXIDE SUSP 30 ML UDC PO PRN (10:53)
[2023-03-17] MEDS ORDERED: NALOXONE HCL 0.4 MG/1 ML VIAL/CARP IV PRN (10:53)
[2023-03-17] MEDS ORDERED: ALBUTEROL HFA 8 GM INHALER INH PRN (10:53)
[2023-03-17] MEDS ORDERED: HYDROmorphone INJ 0.5 MG/0.5 ML SYR IV PRN (10:53)
[2023-03-17] MEDS ORDERED: bisacodyL 10 MG SUPP PR PRN (10:53)
[2023-03-17] MEDS ORDERED: ONDANSETRON INJ 2 MG/ML 2 ML VIAL IV PRN (10:53)
[2023-03-17] MEDS ORDERED: FEXOFENADINE 60 MG TAB PO PRN (10:53)
[2023-03-17] MEDS ORDERED: METOCLOPRAMIDE HCL INJ 5 MG/ML 2 ML VIAL IV PRN (10:53)
[2023-03-17] MEDS: SODIUM CHLORIDE 0.9% 1000ML 1,000 ML IV SCH ×2 (11:39→22:10)
[2023-03-17] MEDS: KETOROLAC TROMETHAMINE 15 MG/ML VIAL IV SCH ×3 (11:39→22:10)
--- NOTE | 2023-03-17 12:09 | XRay Report ---
XR knee LT 1 or 2V routine CLINICAL HISTORY: Postoperative evaluation. COMPARISON: Knee radiographs February 14, 2023. FINDINGS: Alignment of the total left knee arthroplasty is anatomic. There is no periprosthetic frac ture. No unexpected radiopaque foreign bodies are present. There are skin belkis. IMPRESSION: Expected findings following total left knee arthroplasty. ACT 112: Negative or not required by law. Electronically signed by: Bruce Wilder M.D. 03/17/2023 12:07 PM
[2023-03-17] MEDS: oxyCODONE HCL IR 5 MG TAB (IMMEDIATE RELEASE) PO PRN ×2 (12:47→18:11)
[2023-03-17] MEDS: ACETAMINOPHEN 500 MG TAB PO SCH ×2 (15:19→21:23)
[2023-03-17] MEDS: ceFAZolin 2000MG 2,000 MG/15 ML SYR IV SCH (16:04)
[2023-03-17] MEDS ORDERED: MONTELUKAST SODIUM 10 MG TABLET PO SCH (21:00)
[2023-03-17] MEDS ORDERED: METOPROLOL TARTRATE 25 MG TAB PO SCH (21:00)
[2023-03-17] MEDS ORDERED: FAMOTIDINE 40 MG TABLET PO SCH (21:00)
[2023-03-17] MEDS ORDERED: SENNA 8.6 MG TAB PO SCH (21:00)
[2023-03-17] MEDS: ASPIRIN 81 MG ECTAB PO SCH (21:22)
[2023-03-17] MEDS: DOCUSATE SODIUM 100 MG CAP PO SCH (21:22)
[2023-03-18] MEDS: ceFAZolin 2000MG 2,000 MG/15 ML SYR IV SCH (00:12)
[2023-03-18] MEDS: ACETAMINOPHEN 500 MG TAB PO SCH (05:43)
[2023-03-18] MEDS: KETOROLAC TROMETHAMINE 15 MG/ML VIAL IV SCH ×2 (05:43→09:47)
[2023-03-18] MEDS ORDERED: dexAMETHasone 4 MG TAB PO SCH (08:00)
--- NOTE | 2023-03-18 08:27 | Discharge Summary ---
Date of Service March 18, 2023 Admission HPI (Per Admitting) Nelly is a pleasant 68-year-old female who has been doing with chronic increasing left knee pain. X-rays and clinical examination been diagnostic for advanced osteoarthritis of the left knee. After failed conservative treatment, she has elected proceed with a left total knee arthroplasty. I did do a right knee replacement on her in June 2022 when she is done well with that.. Admission Exam (Per Admitting) On physical examination of left knee, she has a slight varus deformity. She is good motion of 0 to 120 degrees. No instability. Pain of the distal medial femoral condyle and over the medial joint line.. Principal Diagnosis Same as "Discharge Diagnosis" noted below under Discharge Instructions. Discharge Data Procedures Performed Operation Date: 03/17/23 08:10 Actual Procedures p Left Total Knee Arthroplasty(Left) - Claudy Katz DO Ordered Studies 03/17/23 05:00 US - OR guided needle placemen Routine Hospital Course (1) Status post left knee replacement: On March 17, 2023 Nelly arrived at [facility] and underwent a left knee replacement complication. She had a spinal anesthetic. Postoperatively she was started on aspirin for DVT prophylaxis and transferred to the general orthopedic floors. Her hospital course was uneventful. On postop day #1, her vital signs were stable and her pain was well controlled. She was able to participate well with physical therapy doing ambulation and range of motion exercises. She was then discharged home. She will follow-up with orthopedics in 2 weeks. PG Care Time/CCT Total # of Minutes Spent Total Time Spent with Patient: Total time spent is greater than 50% in coordination of care (as documented) at patient's floor/unit and/or counseling patient: Discharge Plan Discharge Items Patient Disposition: Home - Home Health Services Reason For Visit: Left Knee Degenerative Joint Disease Discharge Diagnosis: Left knee replacement Activity: Per Instructions section Non-emergency contact: Surgeon Call non-emergency contact if: your wound has increased redness and your wound has increased drainage Follow-up/Referrals: Maricarmen Peter MD [Primary Care Provider] - Diet: Regular Addtl Attending Provider Instructions: Activity and Therapy Recommendations: * If you are using [facility] then therapy will be provided at your home until they feel you have accomplished all of your goals. * If you are using [facility] then Physical Therapy will be provided until they feel you are ready to start Outpatient Physical Therapy. * If you are not using home therapy then Outpatient Physical Therapy should start about 3-5 days from your day of surgery. Therapy will last about 6-10 weeks * It is important not to put a pillow under your knee when you are relaxing or sleeping. It is just as important to make sure you are getting your knee perfectly straight as it is to regain your knee bend. * You were shown a series of exercises in the hospital. Do these exercises three times each day including the exercises you were shown in physical therapy. * Get up and walk several times each day. For the first four weeks, try not to stand or walk for more than one hour at a time. If you do stand or walk for more than one hour, you will not hurt anything, but your leg will likely swell. * As you feel comfortable, you may change from the walker or crutches to a cane and then to independent walking. Medications: * Narcotic You will likely be sent home from the hospital with a prescription for the narcotic pain medication that worked best throughout your stay. * Aspirin Most patients will be required to take Aspirin 81mg twice a day for 6 weeks after surgery. This is obtained [id number] and a prescription is not necessary. * Other medications may be prescribed for specific circumstances. If you have any questions, please call the office at . * Resume previous home medications unless otherwise instructed TEDs/Elastic Stockings: The white elastic stockings help limit swelling and prevent blood clots from forming in your legs.~ The more you wear them, the more they work. Wear them for six weeks. Dressing Care: The dressing can be changed after physical therapy on postop day #1. Daily dry dressing changes for a few days, especially if the incision is still draining some. If the incision is not draining then you may leave the belkis open to air. If there is a little bit of drainage or if the belkis are getting stuck on your clothing then cover the incision with a dry dressing. The belkis will be removed at your 2 week follow-up appointment. Showering: You may shower 5 days from the day of surgery as long as the incision is no longer draining. You may shower with the belkis exposed. Let soapy water run over the belkis and pat them dry. Do not scrub or soak the incision. Things To Watch For: * Drainage from the incision site that occurs more than one week after your surgery. * Increased redness at the incision site. * Fever above 102 degrees Fahrenheit. * Unusual chest pain or shortness of breath. * Call [facility] at with any of the above problems Follow-Up Visit: Follow-up with Dr. Katz's PA (Claudy Holman) 2-3 weeks after your day of surgery. He will remove your belkis and answer any questions. If you have any additional questions or concerns, Dr Katz is usually in the office at the same time and will be available An appointment was probably scheduled when you signed-up for surgery in the office. If you have any questions call Office Instructions: More detailed instructions as well as Frequently Asked Questions were provided in a folder by our office when you signed-up for surgery. Please review these instructions when you get home. If you have any further questions or concerns, please feel free to call the office at [phone] Pending Studies at Discharge: No Stand-Alone Forms: My [facility] [employer], Smoking Cessation Medications and DC Order Prescriptions: New aspirin 81 mg Tablet,Delayed Release (/Ec) 81 mg PO BID 42 Days Qty: 84 0RF oxycodone-acetaminophen 5-325 mg tablet 1 tab PO Q6H PRN (Reason: pain) Qty: 30 0RF Continued celecoxib 200 mg capsule 200 mg PO BID PRN (Reason: Pain) Qty: 60 0RF amoxicillin 500 mg tablet 2,000 mg PO ONCE Qty: 4 3RF Rx Instructions: 4 tabs 1 hour prior to procedure amoxicillin 500 mg tablet 2,000 mg PO ONCE Qty: 4 3RF Rx Instructions: 4 tabs 1 hour prior to procedure famotidine 40 mg Tablet 40 mg PO HS calcium 500 mg Tablet 500 mg PO QAM amlodipine 10 mg Tablet 10 mg PO QAM montelukast 10 mg Tablet 10 mg PO HS magnesium 200 mg Tablet 200 mg PO QAM cholecalciferol (vitamin D3) [Vitamin D3] 10 mcg (400 unit) Capsule 10 mcg PO QAM metoprolol tartrate 25 mg Tablet 12.5 mg PO QPM Catechola-Calm 1 tab PO QPM fexofenadine 60 mg Tablet 60 mg PO BID PRN (Reason: Allergy Symptoms) albuterol sulfate 90 mcg/actuation Hfa Aerosol Inhaler 1 inh INHALATION QID PRN (Reason: Shortness Of Breath Or Wheezing) Qunol 1 tab PO QPM glucosamine-chondroitin [Osteo Bi-Flex] 250-200 mg Tablet 1 tab PO QAM Rx Instructions: give after food/meal Admission Data Admit Date/Time: 03/17/23 09:48 Attending Provider: Claudy Katz Admit Provider: Claudy Katz Primary Care Provider: Maricarmen Peter
--- NOTE | 2023-03-18 08:28 | Orthopedic Progress Note ---
Date of Service March 18, 2023 Assessment & Plan (1) Status post left knee replacement: Overall she is doing very well. She is not having much pain in the left knee. She will be seen by physical therapy today for ambulation and range of motion exercises. She is on aspirin for DVT prophylaxis. She can be discharged home later today. She will follow-up with orthopedics in 2 weeks. Irene Villegas was seen and examined at bedside this morning. Overall she is doing very well. She is not having much pain in the left knee. She has been up and ambulating to the bathroom. She has no complaints.. Review of Systems All systems reviewed & are unremarkable except as noted in HPI & below. Physical Exam On physical examination of the left knee, the dressing is clean and dry. She is sitting in chair at bedside. She has active dorsiflexion plantarflexion of her left ankle.. Results & Data Results & Data Laboratory Results . Diagnostic Findings Postoperative x-rays of the left knee show the prosthesis to be in anatomic alignment without any evidence of fracture, education, or loosening.. PG Care Time/CCT Total # of Minutes Spent Total Time Spent with Patient: Total time spent is greater than 50% in coordination of care (as documented) at patient's floor/unit and/or counseling patient: Coding Level of Care Code 05607 Post Operative Follow-Up Diagnoses Status post left knee replacement Z96.652
[2023-03-18] MEDS: ASPIRIN 81 MG ECTAB PO SCH (08:37)
[2023-03-18] MEDS: DOCUSATE SODIUM 100 MG CAP PO SCH (08:37)
[2023-03-18] MEDS ORDERED: MAGNESIUM OXIDE 400 MG TAB PO SCH (09:00)
[2023-03-18] MEDS ORDERED: MULTIVITAMIN TAB PO SCH (09:00)
[2023-03-18] MEDS ORDERED: amLODIPine BESYLATE 5 MG TAB PO SCH (09:00)
== END 2023-03-18 11:03 | disposition home health service (06) ==
LOC: 3E 06:39 → ASU 06:39